=== PATIENT | male | born 2005 | race Caucasian/White ===

== ENCOUNTER 2025-03-22 19:02 | Emergency (ER) | payer MEDICAID, SELFPAY ==
[2025-03-22] VITALS (8 sets, daily range): BP systolic 120–170; BP diastolic 77–112; PULSE 76–97; RESP 11–16; TEMP 36.6–36.7; O2SAT 97–100; BMI 43.0
[2025-03-22] MEDS: 0.9% Normal Saline (1000mL) 1,000 ML 1000 ML IV (19:41)
--- NOTE | 2025-03-22 19:46 | EX.ED.DYSGE1 ---
HPI History of Present Illness Chief Complaint: General Illness Detail of Chief Complaint: Near syncope Informant: patient Onset/Context/Timing Onset: Today and Hours Context: Sudden Onset Timing: Intermittent Quality: [place] woozy, legs weak and lightheadedness Location: Cardiovascular and back pain Current Severity: Mild Maximum Severity: Moderate Worsened by: Patient was standing at work. Work is not air-conditioned. Relieved by: Time Associated Symptoms Associated Symptoms: lightheadedness, headache, back pain and weakness of his legs Narrative Narrative: Patient is a 19-year-old male. He apparently has some type of spasm of his back that he was told by his PCP is a neurologic issue. Does not know the name of this. He has not had a workup. Currently the insurance company would not authorize a workup. Presently patient denies headache, double vision blurry vision loss of vision. Denies [place] ears decreased hearing. No trouble speech or swallowing. He denies chest pain, tightness, heaviness or pressure. He denies shortness of breath. He denies abdominal pain. He has slight nausea. There is no diarrhea. He denies black or maroon-colored stool. Patient denies leg pain, swelling or discoloration. He has no history of VTE. He has no risk factors for VTE. Patient states his legs were wobbly. He denies any paresthesia, anesthesia motors. Denies bowel bladder dysfunction. He denies saddle paresthesia or anesthesia. Prior similar symptoms: Yes Recent Illness/Hospitalization: No [facility] Medical History Neurological abnormality Allergy/AdvReac Type Severity Reaction Status Date / Time No Known Allergies Allergy Verified 03/22/25 19:41 Social History Smoking Status: Never smoker ROS ROS ED Constitutional Constitutional ED: Denies chills, fever(s), subjective, sweats or weight loss Eyes Eyes: Denies blurry vision or change in vision ENT ENT ED: Denies ear pain, rhinorrhea or sore throat Cardiovascular Cardiovascular: Reports other Details: Complained of lightheadedness that got better when he sat down ; Denies chest pain, palpitations or racing heartbeat Respiratory/Chest Respiratory/Chest: Denies cough, dyspnea or dyspnea on exertion Gastrointestinal Gastrointestinal: Denies abdominal pain, constipation, diarrhea, melena or vomiting Genitourinary Genitourinary ED: Denies dysuria, hematuria or urinary frequency Musculoskeletal Musculoskeletal: Reports back pain; Denies arthralgias, myalgias or neck pain Integumentary Denies rash Neurologic Neurologic: Reports other Details: Detailed HPI narrative ; Denies headache(s), paresthesias or weakness Hematologic/Lymphatic Hematologic/Lymphatic: Reports systems reviewed and no addt'l complaints, except as documented EXAM Physical Exam Const Vital Signs: 03/22/25 19:03 03/22/25 19:08 03/22/25 19:19 Temperature 98.1 F Temperature Source Oral Pulse Rate 97 Respiratory Rate 16 Respiratory Effort Normal Respiratory Pattern Normal Blood Pressure 151/94 H Blood Pressure Mean 113 Pulse Ox 99 97 Oxygen Delivery Method Room Air 03/22/25 19:30 03/22/25 19:45 03/22/25 20:00 Temperature Temperature Source Pulse Rate 84 86 Respiratory Rate 13 11 L Respiratory Effort Respiratory Pattern Blood Pressure 170/94 H 144/86 H 136/84 H Blood Pressure Mean 111 104 97 Pulse Ox 100 97 98 Oxygen Delivery Method 03/22/25 20:45 03/22/25 21:00 Temperature Temperature Source Pulse Rate 76 77 Respiratory Rate 15 12 Respiratory Effort Respiratory Pattern Blood Pressure 127/112 H Blood Pressure Mean 118 Pulse Ox 100 99 Oxygen Delivery Method Room Air Positive well nourished and well developed Constitutional Narrative: When I entered the room patient had to remove his headphones he could hear me speak. General Appearance ED: well developed and NAD HEENT HEENT Narrative: Head is atraumatic no cephalic. Ears normal. External auditory canal normal. TMs are normal. Nares patent without discharge. Posterior pharynx not erythema or exudate. Eyes PERRL and EOMs intact bilaterally Eyes Narrative: There is no nystagmus. General Eye ED: Negative for pale conjunctiva or scleral icterus Neck no lymphadenopathy, supple and no JVD Neck Narrative: There is no carotid bruit on the left or right. Resp normal respiratory effort and clear to auscultation bilaterally Cardio regular rate, regular rhythm, S1 normal heart sound, S2 normal heart sound and no murmurs GI normal to inspection, nondistended, normoactive bowel sounds, non-tender, non-distended and no masses; Negative for hepatosplenomegaly Back/Spine no CVA tenderness Back/Spine Narrative: Inspection of the back is normal. Patient was able to rise from a semisupine position to upright position. After couple minutes he started having abnormal movement of his torso. Thoracic Spine / Upper Back: paraspinal muscle tenderness Lumbar Spine / Lower Back: lumbar spinal tenderness Extremity normal to inspection Extremity Narrative: DP and PT pulse are 2+. General Extremety ED: Negative for edema or tenderness General Extremity: Negative for edema Neuro oriented x3, CN's II-XII intact bilaterally and no sensory deficits noted Neuro Narrative: Sensation over L5-S1 dermatome normal. Patella and ankle reflex are 1+ and symmetric. EHLs is intact bilaterally. 5/5 strength dorsi and plantarflexion of his foot. 5/5 strength right and left hip flexors, bilateral. Patient has normal perianal sensation. Patient has paralumbar discomfort right and left. Sensorium / Orientation: alert Motor Exam: strength 5/5 throughout Psych mental status grossly normal Skin no rashes or lesions noted, no wounds and No skin turgor normal Skin Narrative: Patient is diaphoretic. MDM MDM MDM Narrative Medical decision making narrative: Suspect patient had near syncope due to hypovolemia or vasovagal for standing prolonged time and warm conditions. With regards to his back pain this is muscular etiology. He has a normal neurovascular exam of his lower extremities. Lab Data Attestation: I reviewed the patient's lab results. Lab results narrative: Basic metabolic panel is unremarkable. Labs: Laboratory Results - last 24 hr 03/22/25 19:45 Sodium 141 Potassium 4.0 Chloride 107 Carbon Dioxide 23.6 Anion Gap 11 BUN 14 Creatinine 1.07 Estim Creat Clear Calc 174.89 Est GFR (MDRD) Non-Af 101 BUN/Creatinine Ratio 13.2 Glucose 96 Calcium 9.6 Treatment and Re-Evaluation :: Patient was reassessed at 2135. Patient able to sit up. He is now smiling. He states he feels better. He will be discharged to home. Discharge Plan Triage Chief Complaint: General Illness ED Provider: Luis Arriaza Dx/Rx/DC Orders Clinical Impression: Near syncope, Myofascial pain syndrome of lumbar spine, Elevated blood-pressure reading without diagnosis of hypertension, Body mass index (BMI) of 40.1 to 44.9 in adult Instructions: ED Myofascial Pain Syndrome, ED Near-Fainting, Uncertain Cause Primary Care Provider: Care Physician,No Primary Referrals: [facility] Doctor,Out of [Non-Staff] - As Needed Print Language: Singaporean Disposition Disposition: Home, Self Care
[2025-03-22 20:15] LABS: Anion Gap 11 (5-15); BUN 14 mg/dL (4-19); BUN/Creat Ratio 13.2 RATIO (10-20); Calcium,Total 9.6 mg/dL (7.6-11.0); Carbon Dioxide 23.6 mmol/L (21.0-32.0); Chloride 107 mmol/L (98-108); Estimated Creatinine Clearance 174.89 ml/min (50-250); Glucose 96 mg/dL (70-99); Potassium 4.0 mmol/L (3.3-5.1)
== END 2025-03-22 21:56 | disposition home or self-care (01) ==
PROVIDERS: Emergency Provider Emergency Medicine; Visit Provider Emergency Medicine
DX: R42 Dizziness and giddiness (principal); R29.898 Other symptoms and signs involving the musculoskeletal system; R03.0 Elevated blood-pressure reading, without diagnosis of hypertension; M54.9 Dorsalgia, unspecified; M79.18 Myalgia, other site
CPT/HCPCS: 80048; 96361; 96374; 99285